=== PATIENT | female | born 1970 | race Caucasian/White ===

== ENCOUNTER 2022-12-17 10:55 | Emergency (ER) | payer OTHER, SELFPAY ==
[2022-12-17 10:57] VITALS: BP 125/63; PULSE 91; RESP 18; TEMP 36.8; O2SAT 99; BMI 28.0
[2022-12-17 12:21] LABS: Bacteria 0 SEEN /hpf (None Seen); Mucous, Urine 0 SEEN /hpf (<or=2+); White Blood Cells 0 SEEN /hpf (0-5)
[2022-12-17 12:22] LABS: Absolute Neutrophil Count 7.6 X10^3/uL (2.0-7.7); Basophil# 0.04 X10^3/uL; Basophil% 0.4 % (0-1); Eosinophil# 0.07 X10^3/uL; Eosinophils% 0.7 % (0-5); Hematocrit 40.4 % (37-47); Hemoglobin 14.1 g/dL (12.0-15.0); Lymphocyte % 12.4 % (19-41); Mean Corp Hgb Conc 34.9 g/dL (32-36); Mean Corpuscular Hgb 30.9 pg (27.0-32.0); Mean Corpuscular Volume 88.6 fL (81-99); Monocyte# 0.76 X10^3/uL; Monocyte% 7.9 % (0-10); NRBC Flagged by Analyzer 0 % (0-5); Neutrophil # 7.55 X10^3/uL (2.7-7.7); Neutrophil % 78.3 % (47-70); Platelet Count 193 K/mm3 (150-450); RBC Distribution Width CV 11.8 % (11.6-14.6); RBC Distribution Width SD 37.9 fl (35.1-43.9); Red Blood Count 4.56 M/mm3 (4.2-5.4); White Blood Count 9.7 K/mm3 (4.4-11.0)
[2022-12-17 12:26] LABS: Color, Urine Straw (Yellow); Glucose, Dipstick Normal (Normal); Ketone-Dipstick 5 mg/dl (Negative); Leukocyte Esterase-Dipstick Negative /ul (Negative); Nitrite-Dipstick Negative (Negative); Occult Blood-Urine 25 /ul (Negative); Protein-Dipstick Negative (Negative); Urine Bilirubin Dipstick Negative (Negative); Urine Clarity Sl. Cloudy (Clear); Urine Urobilinogen Normal (Normal); Urine pH 6.5 (5.0 - 8.0)
[2022-12-17 12:31] LABS: Red Blood Cells-Urine 0-5 SEEN /hpf (0-5); Squamous Epithelial Cells - UA 0-5 SEEN /hpf (5-10)
[2022-12-17 12:35] LABS: Anion Gap 5 (5-15); BUN 9 mg/dL (7-18); BUN/Creat Ratio 12.4 RATIO (10-20); Calcium,Total 9.6 mg/dL (8.5-10.1); Chloride 104 mmol/L (98-107); Creatinine, Serum 0.73 mg/dL (0.55-1.02); EST Glomerular Filtration Rate 89 mL/min (>60); Est Glom Filt Rate - Afr Amer 108 mL/min (>60); Estimated Creatinine Clearance 68.03 ml/min; Glucose 97 mg/dL (74-106); Potassium 3.7 mmol/L (3.5-5.1); Sodium Level 138 mmol/L (136-145)
[2022-12-17] MEDS: Metoclopramide 10 MG/2 ML Vial IV (13:34)
[2022-12-17 14:55] VITALS: BP 122/87; PULSE 87; RESP 16; O2SAT 99
--- NOTE | 2022-12-17 15:06 | ED.VIS.GI ---
HPI HPI - GI History of Present Illness Chief Complaint: Abd Pain Narrative Narrative: 52-year-old female presenting with diffuse crampy abdominal pain and nausea. She has not vomited. She states she does have Zofran at home but does not like to take this because it makes her constipated. She has not had a fever, chills, body aches. No black or bloody stools or emesis. No urinary or vaginal complaints. PFSH PFSH Medical History (Updated 12/17/22 @ 12:10 by Isaura Aguero) Anxiety Home Medications lorazepam 0.5 mg tablet 0.5 mg PO DAILY PRN PRN Anxiety 12/26/16 [History Last Taken Unknown] metoclopramide HCl 10 mg tablet (Reglan) 10 mg PO Q8H PRN PRN nausea and vomiting #10 tabs 12/17/22 [Rx Last Taken Unknown] zolpidem 5 mg tablet 5 mg PO QHS PRN Sleep 12/17/22 [History Last Taken Unknown] Allergy/AdvReac Type Severity Reaction Status Date / Time Sulfa (Sulfonamide Allergy Rash Verified 12/17/22 10:57 Antibiotics) Surgical History (Updated 12/17/22 @ 12:10 by Isaura Aguero) Hx of section Social History Smoking Status: Never smoker ROS ROS ED Constitutional Constitutional ED: Denies chills, fever(s) or sweats Eyes Eyes: Denies blurry vision or change in vision ENT ENT ED: Denies ear pain or sore throat Cardiovascular Cardiovascular: Denies chest pain, palpitations or racing heartbeat Respiratory/Chest Respiratory/Chest: Denies cough, dyspnea or sputum Gastrointestinal Gastrointestinal: Reports abdominal pain and nausea; Denies constipation, diarrhea or vomiting Genitourinary Genitourinary ED: Denies dysuria, hematuria or urinary frequency Musculoskeletal Musculoskeletal: Denies arthralgias, myalgias or neck pain Integumentary Denies abscess, Abrasions or rash Neurologic Neurologic: Denies headache(s), paresthesias or weakness Psychiatric Psychiatric: Denies anxiety, depression, suicidal ideation or suicidal thoughts Endocrine Endocrinology: Denies polydipsia or polyuria EXAM Physical Exam Const Vital Signs: 12/17/22 10:57 12/17/22 14:55 Temperature 98.2 F Temperature Source Temporal Pulse Rate 91 87 Respiratory Rate 18 16 Blood Pressure 125/63 H 122/87 H Blood Pressure Mean 83 98 Pulse Ox 99 99 Oxygen Delivery Method Room Air Room Air Positive well nourished and obese General Appearance ED: NAD Nutritional Appearance: obese HEENT Reports moist mucous membranes normocephalic and atraumatic Eyes PERRL Resp normal respiratory effort and clear to auscultation bilaterally Auscultation: Negative for rales, rhonchi or wheezes Cardio regular rate and regular rhythm GI GI Narrative: Benign Palpation: Negative for guarding or rigid Neuro CN's II-XII intact bilaterally and moves all extremities Sensorium / Orientation: alert Motor Exam: strength 5/5 throughout Psych mental status grossly normal Skin no wounds MDM MDM MDM Narrative Medical decision making narrative: Patient presenting with nausea and previously had diffuse crampy abdominal pain. Her abdominal pain is improved but she still nauseous. She had Zofran at home but did not take it because she states this makes her constipated. Patient was medicated with Zofran. Differential includes but is not limited to GERD, gastritis, peptic ulcer disease, acute cholecystitis, acute cholelithiasis, appendicitis, diverticulitis, pancreatitis. Patient does states she has a history of gallbladder issues. He does not have a desire Preciado sign. CBC to assess white blood cell count, hemoglobin, differential. BMP to assess renal function electrolytes. Urinalysis to assess for UTI or dehydration. Urinalysis negative for infection. CBC and BMP unremarkable. Patient given a dose of Reglan 10 mg IV and she feels improved. Since her blood work is normal I feel she stable for discharge home. I do not believe she needs any imaging. I do not believe this is associated with her gallbladder. Impression: 1. Abdominal pain?resolved 2. Nausea Lab Data Attestation: I reviewed the patient's lab results. Labs: Laboratory Results - last 24 hr 12/17/22 12/17/22 12/17/22 12:00 12:00 12:00 WBC 9.7 RBC 4.56 Hgb 14.1 Hct 40.4 MCV 88.6 MCH 30.9 MCHC 34.9 RDW Std Deviation 37.9 RDW Coeff of Leatha 11.8 Plt Count 193 MPV 10.0 Immature Gran % (Auto) 0.300 Neut % (Auto) 78.3 H Lymph % (Auto) 12.4 L Mcculloch % (Auto) 7.9 Eos % (Auto) 0.7 Baso % (Auto) 0.4 Absolute Neuts (auto) 7.6 Absolute Lymphs (auto) 1.20 Nucleated RBC % 0 Sodium 138 Potassium 3.7 Chloride 104 Carbon Dioxide 29.0 Anion Gap 5 BUN 9 Creatinine 0.73 Estim Creat Clear Calc 68.03 Est GFR (MDRD) Af Amer 108 Est GFR (MDRD) Non-Af 89 BUN/Creatinine Ratio 12.4 Glucose 97 Calcium 9.6 Urine Color Straw Urine Clarity Sl. Cloudy Urine pH 6.5 Ur Specific [place] 1.010 Urine Protein Negative Urine Glucose (UA) Normal Urine Ketones 5 H Urine Occult Blood 25 H Urine Nitrite Negative Urine Bilirubin Negative Urine Urobilinogen Normal Ur Leukocyte Esterase Negative Urine RBC 0-5 SEEN Urine WBC 0 SEEN Ur Squamous Epith Cells 0-5 SEEN Urine Bacteria 0 SEEN Urine Mucus 0 SEEN Discharge Plan Triage Chief Complaint: Abd Pain Other Complaint: Dizziness ED Provider: Michael Miranda Dx/Rx/DC Orders Instructions: ED Abdominal Pain Unkn Cause Fem, ED Vomiting (Adult) Prescriptions: New metoclopramide HCl [Reglan] 10 mg tablet 10 mg PO Q8H PRN PRN (Reason: nausea and vomiting) Qty: 10 0RF No Action lorazepam 0.5 MG tablet 0.5 mg PO DAILY PRN PRN (Reason: Anxiety) zolpidem 5 mg Tablet 5 mg PO QHS PRN (Reason: Sleep) Primary Care Provider: Jeff Mahajan Referrals: Jeff Mahajan MD [Primary Care Provider] - Disposition Disposition: Home, Self Care Discharge Date/Time: 12/17/22 15:03
== END 2022-12-17 15:03 | disposition home or self-care (01) ==
PROVIDERS: Emergency Provider Student in an Organized Health Care Education/Training Program; PCP Family Medicine; Visit Provider Student in an Organized Health Care Education/Training Program
DX: R42 Dizziness and giddiness (principal); R11.0 Nausea; R10.84 Generalized abdominal pain
CPT/HCPCS: 80048; 81001; 85025; 96374; 99282; A4216